=== PATIENT | female | born 1980 | race Caucasian/White ===

== ENCOUNTER 2016-09-04 19:32 | Emergency (ER) | payer MEDICAID ==
[~2016-09-04] VITALS: Ht 162.6 cm; Wt 88.5 kg
[~2016-09-04 19:32] MED LIST: CEPH-443 PO; HYDR-3498 PO
[2016-09-04 19:59] VITALS: Ht 162.6 cm; Wt 88.5 kg
[2016-09-04] MEDS ORDERED: CEFTRIAXONE 1 GM/50 ML (PMX) 50 ML IVPB STA (20:58)
[2016-09-04] MEDS ORDERED: SODIUM CHLORIDE 0.9% 1L BAG IV* STA (20:58)
[2016-09-04] MEDS ORDERED: ACETAMINOPHEN 500 MG TAB PO STA (21:10)
[2016-09-04] MEDS ORDERED: ONDANSETRON 4 MG INJ IV STA (21:11)
[2016-09-04] MEDS ORDERED: morphine 4 MG/ML VIAL IV STA (21:11)
[2016-09-04 21:32] LABS: BASOPHILS % 0.3 % (0.0-2.0); CONDITION 1; EOSINOPHILS # 0.1 10^3/ul (0.0-0.5); EOSINOPHILS % 0.7 % (0.0-7.0); HEMATOCRIT 40.3 % (37.0-47.0); HEMOGLOBIN 13.9 g/dl (12.0-16.0); LYMPHOCYTES # 1.1 10^3/ul (0.8-2.9); LYMPHOCYTES % 13.1 % (15.0-51.0); MEAN CORPUSCULAR HEMOGLOBIN 29.9 pg (29.0-33.0); MEAN CORPUSCULAR HGB CONC 34.5 g/dl (32.0-37.0); MEAN CORPUSCULAR VOLUME 86.7 fl (82.0-101.0); MEAN PLATELET VOLUME 8.6 fl (7.4-10.4); MONOCYTE # 0.7 10^3/ul (0.3-0.9); MONOCYTES % 8.2 % (0.0-11.0); NEUTROPHIL # 6.5 10^3/ul (1.6-7.5); NEUTROPHILS % 77.7 % (39.0-77.0); PLATELET COUNT 240 10^3/UL (140-440); RED BLOOD COUNT 4.65 10^6/ul (4.20-5.40); RED CELL DISTRIBUTION WIDTH 13.1 % (11.5-14.5); UNCORRECTED WBC 8.4 10^3/ul (4.8-10.8); WHITE BLOOD COUNT 8.4 10^3/ul (4.8-10.8)
[2016-09-04 21:38] LABS: ADD UMIC YES; URINE BILIRUBIN (Dip) NEGATIVE (NEGATIVE); URINE BLOOD (Dip) TRACE (NEGATIVE); URINE COLOR LT. YELLOW (YELLOW); URINE GLUCOSE (Dip) NEGATIVE (NEGATIVE); URINE KETONES (Dip) NEGATIVE (NEGATIVE); URINE LEUKOCYTE ESTERASE (Dip) 2+ (NEGATIVE); URINE NITRITE (Dip) NEGATIVE (NEGATIVE); URINE TOTAL PROTEIN (Dip) NEGATIVE (NEGATIVE); URINE UROBILINOGEN (Dip) 1.0 E.U./dL (0.1-1.0)
[2016-09-04 21:40] LABS: ALBUMIN 4.2 g/dl (3.3-4.9); CHLORIDE 102 mmol/L (97-110); INR 1.11; PARTIAL THROMBOPLASTIN TIME 32.8 Sec (25.0-35.0); PROTIME 14.3 Sec (12.2-14.2); PT RATIO 1.1; SODIUM 140 mmol/L (135-144)
[2016-09-04 21:41] LABS: POTASSIUM 3.3 mmol/L (3.5-5.1)
[2016-09-04 21:42] LABS: CREATININE 0.67 mg/dl (0.44-1.00)
[2016-09-04 21:43] LABS: ALANINE AMINOTRANSFERASE 73 IU/L (13-69); ALBUMIN/GLOBULIN RATIO 1.23; ALKALINE PHOSPHATASE 115 IU/L (42-121); ANION GAP 18 (8-16); ASPARTATE AMINO TRANSFERASE 54 IU/L (15-46); BILIRUBIN,INDIRECT 0.7 mg/dl (0-1.1); BILIRUBIN,TOTAL 0.7 mg/dl (0.2-1.3); BLOOD UREA NITROGEN 9 mg/dl (7-20); CARBON DIOXIDE 23 mmol/L (21-31); GLUCOSE 165 mg/dl (70-220); TOTAL PROTEIN 7.6 g/dl (6.1-8.1)
[2016-09-04 21:44] LABS: CALCIUM 8.7 mg/dl (8.4-10.2)
[2016-09-04 21:47] LABS: BACTERIA,URINE FEW; SQUAMOUS EPITHELIAL CELL,UR MODERATE; URINE RBCS 0-2 /HPF (0)
[2016-09-04 21:59] LABS: TROPONIN-I < 0.012 ng/ml (0.00-0.12)
--- NOTE | 2016-09-04 23:53 | RADRPT ---
PROCEDURE: CHEST - 1 VIEW CLINICAL INDICATION: 36-year-old female with shortness of breath and sepsis. TECHNIQUE: A single frontal AP semi-erect view of the chest was performed portably. The images we re reviewed on a PACS workstation. COMPARISON: Chest x-ray April 25, 2012; CT abdomen/pelvis November 20, 2015. FINDINGS: The cardiomediastinal silhouette has a normal appearance. There is no evidence for an infiltrate. There is no evidence for congestive heart failure. There is no evidence for pneumothorax. The osseou s structures are intact. IMPRESSION: No evidence for active cardiopulmonary disease. .Jalen Garcia MD, MD Date Time Electronically viewed and signed by .Jalen Garcia MD, on 09/04/2016 23:53 .[place]
[2016-09-05] MEDS ORDERED: ONDANSETRON 4 MG INJ IV STA (00:39)
[2016-09-05] MEDS ORDERED: morphine 4 MG/ML VIAL IV STA (00:39)
[2016-09-05 01:20] VITALS: BP 119/79; PULSE 102; RESP 20; TEMP 100
--- NOTE | 2016-09-05 01:39 | RADRPT ---
PROCEDURE: CT ABDOMEN/PELVIS WITHOUT CONTRAST CLINICAL INDICATION: 36-year-old female with abdominal pain. TECHNIQUE: The study was performed utilizing a GE Neosenspeed VCT 64-slice CT scanner. Direct axia l sections were obtained through the abdomen and pelvis without the use of intravenous contrast mate rial. Sagittal and coronal reformations were obtained. Automated exposure control and iterative justice nstruction techniques were utilized for this examination. The images [facility] CTD/vol = 20.3 mGy; Total Exam DLP = 1165.1 mGy-cm. COMPARISON: Abdomen/pelvis November 20, 2015. FINDINGS: There are small bilateral pleural effusions. There is mild bibasilar subsegmental atelectasis. The liver has a normal contour and is enlarged measuring 28.0 cm in maximal length with marked diffuse decreased density consistent with fatty infiltration without focal areas of abnormal density. No int rahepatic nor extrahepatic biliary ductal dilatation is seen. Surgical clips are present within the gallbladder fossa from prior cholecystectomy. The pancreas is without areas of abnormal attenuation . The spleen is identified and has a normal size without abnormal density. The adrenal glands are u nremarkable. The kidneys are without abnormal density. No hydroureteronephrosis nor nephroureterolit hiasis is evident. The urinary bladder contains urine. There is no evidence for bowel obstruction. The appendix is visualized and is without abnormal thickening or surrounding inflammatory reaction. The uterus is unremarkable. Phleboliths are seen within the pelvis. There is no significant free fluid. The aortoiliac vessels are without aneurysmal dilatation. The osseous structures are intact. IMPRESSION: 1. Small bilateral pleural effusions and mild bibasilar subsegmental atelectasis. 2. Hepatomegaly with diffuse fatty infiltration. 3. Status post cholecystectomy. 4. No CT evidence for obstructive uropathy or renal calculi. 5. No CT evidence for appendicitis. .Jalen Garcia MD, Date Time Electronically viewed and signed by .Jalen Garcia MD, MD on 09/05/2016 01:38 .[place]
[2016-09-05] MEDS ORDERED: ONDA4TAB8 PO (02:40)
[2016-09-05] MEDS ORDERED: CIPR500T4 PO (02:41)
[2016-09-05] MEDS ORDERED: UDLOM GTB (02:41)
[2016-09-05] MEDS ORDERED: METR500T PO (02:41)
--- NOTE | 2016-09-05 02:51 | ERD ---
ER Documentation Chief Complaint Date/Time DATE: 09/05/16 TIME: 02:49 Chief Complaint diarrhea x 3 weeks, fever/vomit x 1 day HPI Patient is a 36 year old female with multiple complaints who presents to the ED with 3 weeks of diarrhea, 1 week of fever on and off as well as one day of non blood non bilious emesis that started today. She states that she has had constant non bloody non black diarrhea. Denies recent travel or change in food. States that she developed tactile fevers at home on and offs. She also complains of periumbilical abdominal pain. She states that she had umbilica hernia surgery 5 months ago and is concerned because the pain is located in her periumbilical area, similar to what she had prior to the surgery. She denies chest pain, shortness of breath or difficulty breathing. She denies dizziness or weakness. Denies recent surgeries, leg pain, swelling or recent travel. Also complains of dysuria and urgency with no back pain. She has taken tylenol for her symptoms. No other complaints. ROS All systems reviewed and are negative except as per history of present illness. Medications Home Meds Active Scripts Metronidazole* (Flagyl*) 500 Mg Tablet, 500 MG PO TID for 5 Days, TAB Prov:AYAZ CRAVEN PA-C 09/05/16 Ciprofloxacin Hcl* (Ciprofloxacin Hcl*) 500 Mg Tablet, 500 MG PO BID for 5 Days , TAB Prov:AYAZ CRAVEN PA-C 09/05/16 Diphenoxylate Hcl-Atropine* (Lomotil*) 5 Ml Soln, 5 ML GTB Q6H Y for DIARRHEA for 7 Days, ML Prov:AYAZ CRAVEN PA-C 09/05/16 Ondansetron Hcl* (Zofran*) 4 Mg Tablet, 4 MG PO Q6H for NAUSEA AND/OR VOMITING, #30 TAB Prov:AYAZ CRAVEN PA-C 09/05/16 Hydrocodone Bit-Acetaminophen* ([place]*) 5-325 Mg Tab, 1 TAB PO Q6 Y for PAIN, # 7 TAB Prov:LEXIE BURNS PA-C 11/20/15 Cephalexin* (Keflex*) 500 Mg Capsule, 500 MG PO QID for 7 Days, CAP Prov:LEXIE BURNS PA-C 11/20/15 Allergies Allergies: Coded Allergies: No Known Allergy (Unverified , 04/25/12) PMhx/Soc Medical and Surgical Hx: pt denies Medical Hx History of Surgery: Yes (umbilical hernia ) Anesthesia Reaction: No Hx Neurological Disorder: No Hx Respiratory Disorders: No Hx Cardiac Disorders: No Hx Psychiatric Problems: No Hx Miscellaneous Medical Probl: Yes (UTI) Hx Alcohol Use: No Hx Substance Use: No Hx Tobacco Use: No Physical Exam Vitals Vital Signs Date Time Temp Pulse Resp B/P Pulse Ox O2 Delivery O2 Flow Rate FiO2 09/05/16 01:20 100.0 102 20 119/79 98 Room Air 09/05/16 00:25 100.2 106 22 128/88 98 Room Air 09/04/16 22:51 102.0 108 22 131/77 98 Room Air 09/04/16 21:25 Nasal Cannula 2 09/04/16 21:20 103.1 117 21 143/84 100 Room Air 09/04/16 19:59 101.3 132 28 141/98 100 Physical Exam GENERAL: Well-developed, well-nourished female. Appears in distress HEAD: Normocephalic, atraumatic. EYES: Pupils are equally reactive bilaterally. EOMs grossly intact. No conjunctival erythema. ENT: Moist mucous membranes. No uvula deviation. No kissing tonsils. No exudates. NECK: Supple. No lymphadenopathy or thyromegaly. No meningismus. negative kernig. negative brudinski. LUNG: Clear to auscultation bilaterally. No rhonchi, wheezing, rales or coarse breath sounds. HEART: Regular rate and rhythm. No murmurs, rubs or gallops. ABDOMEN: No scars, ecchymosis or rashes noted. Soft, and nondistended. Positive bowel sounds in all four quadrants. No rebound tenderness, no guarding. (-) McBurneys point tenderness. No CVA tenderness. tenderness in periumbilical region. BACK: No midline tenderness. Extremities: Equal pulses bilaterally. No peripheral clubbing, cyanosis or edema. No unilateral leg swelling. NEUROLOGIC: Alert and oriented. Moving all four extremities. 5/5 strength in all extremities. Normal speech. Steady gait. CN 2-12 intact. SKIN: Normal color. Warm and dry. No rashes or lesions. Capillary refill < 2 seconds Result Diagram: 09/04/16210109/04/162101 Results 24 hrs Laboratory Tests Test 09/04/16 21:02 09/04/16 23:12 09/05/16 01:00 Activated Partial Thromboplast Time 32.8Sec Alanine Aminotransferase (ALT/SGPT) 73IU/L Albumin 4.2g/dl Albumin/Globulin Ratio 1.23 Alkaline Phosphatase 115IU/L Anion Gap 18 Aspartate Amino Transf (AST/SGOT) 54IU/L Basophils # 0.010^3/ul Basophils % 0.3% Blood Urea Nitrogen 9mg/dl Calcium Level 8.7mg/dl Carbon Dioxide Level 23mmol/L Chloride Level 102mmol/L Creatinine 0.67mg/dl Direct Bilirubin 0.00mg/dl Eosinophils # 0.110^3/ul Eosinophils % 0.7% Globulin 3.40g/dl Glucose Level 165mg/dl Hematocrit 40.3% Hemoglobin 13.9g/dl INR International Normalized Ratio 1.11 Indirect Bilirubin 0.7mg/dl Lactic Acid Level 2.7mmol/L 0.9mmol/L 1.0mmol/L Lymphocytes # 1.110^3/ul Lymphocytes % 13.1% Mean Corpuscular Hemoglobin 29.9pg Mean Corpuscular Hemoglobin Concent 34.5g/dl Mean Corpuscular Volume 86.7fl Mean Platelet Volume 8.6fl Monocytes # 0.710^3/ul Monocytes % 8.2% Neutrophils # 6.510^3/ul Neutrophils % 77.7% Nucleated Red Blood Cells # 0.010^3/ul Nucleated Red Blood Cells % 0.0/100WBC Platelet Count 48236^3/UL Potassium Level 3.3mmol/L Prothrombin Time 14.3Sec Prothrombin Time Ratio 1.1 Red Blood Count 4.6510^6/ul Red Cell Distribution Width 13.1% Sodium Level 140mmol/L Total Bilirubin 0.7mg/dl Total Protein 7.6g/dl Troponin I < 0.012ng/ml Urine Bacteria FEW Urine Bilirubin NEGATIVE Urine Clarity CLEAR Urine Color LT. YELLOW Urine Glucose NEGATIVE% Urine Hemoglobin TRACE Urine Ketones NEGATIVE Urine Leukocyte Esterase 2+ Urine Microscopic RBC 0-2/HPF Urine Microscopic WBC 10-25/HPF Urine Nitrite NEGATIVE Urine Test NEGATIVE Urine Specific [place] 1.015 Urine Squamous Epithelial Cells MODERATE Urine Total Protein NEGATIVE Urine Urobilinogen 1.0 E.U./dL Urine pH 5.5 White Blood Count 8.410^3/ul Current Medications Medications (Trade) Dose Ordered Sig/Reuben Route PRN Reason Start Time Stop Time Status Last Admin Dose Admin Sodium Chloride 2740 ml 2,740 ml BOLUS OVER 2 HOURS STAT IV* 09/04/16 20:58 09/05/16 02:56 DC 09/04/16 21:23 Ceftriaxone Sodium (Rocephin) 50 ml @ 100 mls/hr ONCE STAT IVPB 09/04/16 20:58 09/05/16 02:56 DC 09/04/16 21:23 Acetaminophen (Tylenol Tab) 1,000 mg ONCE STAT PO 09/04/16 21:10 09/05/16 02:56 DC 09/04/16 21:22 Ondansetron HCl (Zofran Inj) 4 mg ONCE STAT IV 09/04/16 21:11 09/05/16 02:56 DC 09/04/16 21:22 Morphine Sulfate (morphine) 4 mg ONCE STAT IV 09/04/16 21:11 09/05/16 02:56 DC 09/04/16 21:23 Morphine Sulfate (morphine) 4 mg ONCE STAT IV 09/05/16 00:39 09/05/16 02:56 DC 09/05/16 01:06 Ondansetron HCl (Zofran Inj) 4 mg ONCE STAT IV 09/05/16 00:39 09/05/16 02:56 DC 09/05/16 01:06 Procedures/MDM ER COURSE: I kept the patient and/or family informed of laboratory and diagnostic imaging results throughout the emergency room course. EKG, MONITORS, & DIAGNOSTIC IMAGING: [place] [address] Radiology Main Line: [phone] DIAGNOSTIC IMAGING REPORT Patient: TARAH WARREN : 1980 Age: 36 Sex: F MR #: [id number] DOS: 09/04/162057 Ordering MD: PJ CRAMER MD Location: [facility] Room/Bed: PROCEDURE: CT ABDOMEN/PELVIS WITHOUT CONTRAST CLINICAL INDICATION: 36-year-old female with abdominal pain. TECHNIQUE: The study was performed utilizing a GE Dynispe[employer] Shuttle Express VCT 64-slice CT scanner. Direct axial sections were obtained through the abdomen and pelvis without the use of intravenous contrast material. Sagittal and coronal reformations were obtained. Automated exposure control and iterative reconstruction techniques were utilized for this examination. The images were reviewed on a PACS workstation. CTD/vol = 20.3 mGy; Total Exam DLP = 1165.1 mGy-cm. COMPARISON: Abdomen/pelvis November 20, 2015. FINDINGS: There are small bilateral pleural effusions. There is mild bibasilar subsegmental atelectasis. The liver has a normal contour and is enlarged measuring 28.0 cm in maximal length with marked diffuse decreased density consistent with fatty infiltration without focal areas of abnormal density. No intrahepatic nor extrahepatic biliary ductal dilatation is seen. Surgical clips are present within the gallbladder fossa from prior cholecystectomy. The pancreas is without areas of abnormal attenuation. The spleen is identified and has a normal size without abnormal density. The adrenal glands are unremarkable. The kidneys are without abnormal density. No hydroureteronephrosis nor nephroureterolithiasis is evident. The urinary bladder contains urine. There is no evidence for bowel obstruction. The appendix is visualized and is without abnormal thickening or surrounding inflammatory reaction. The uterus is unremarkable. Phleboliths are seen within the pelvis. There is no significant free fluid. The aortoiliac vessels are without aneurysmal dilatation. The osseous structures are intact. IMPRESSION: 1. Small bilateral pleural effusions and mild bibasilar subsegmental atelectasis. 2. Hepatomegaly with diffuse fatty infiltration. 3. Status post cholecystectomy. 4. No CT evidence for obstructive uropathy or renal calculi. 5. No CT evidence for appendicitis. .Jalen Garcia MD, Date Time Electronically viewed and signed by .Jalen Garcia MD, on 09/05/2016 01:38 .M/ CC: PJ CRAMER MD EKG performed, read by [] [default value]bpm, normal sinus rhythm, normal axis, no acute ST segment changes, no T wave inversion [facility] [address], [place], [place] [address] Radiology Main Line: [phone] DIAGNOSTIC IMAGING REPORT Patient: TARAH WARREN : 1980 Age: 36 Sex: F MR #: [id number] DOS: 09/04/162057 Ordering MD: PJ CRAMER MD Location: [facility]TE Room/Bed: PROCEDURE: CHEST - 1 VIEW CLINICAL INDICATION: 36-year-old female with shortness of breath and sepsis. TECHNIQUE: A single frontal AP semi-erect view of the chest was performed portably. The images were reviewed on a PACS workstation. COMPARISON: Chest x-ray April 25, 2012; CT abdomen/pelvis November 20, 2015. FINDINGS: The cardiomediastinal silhouette has a normal appearance. There is no evidence for an infiltrate. There is no evidence for congestive heart failure. There is no evidence for pneumothorax. The osseous structures are intact. IMPRESSION: No evidence for active cardiopulmonary disease. .Jalen Garcia MD, MD Date Time Electronically viewed and signed by .Jalen Garcia MD, MD on 09/04/2016 23:53 .M/ CC: PJ CRAMER MD MEDICATIONS: Morphine, zofran, tylenol. Tolerated medication well with no adverse reaction LAB INTERPRETATION: CBC showed no evidence of systemic infection or severe anemia. CMP showed no evidence of electrolyte abnormalities, severe acidosis, alkalosis, renal failure , or liver disease. Lipase showed no evidence of acute pancreatitis. Her lactic acid was intitially elevated to 2.7, but after 2 readings were within normal limits. UA showed no evidence of nitrites or hematuria, 2+ leukocytes. Urine test was negative. MEDICAL DECISION MAKING: This is a 36 year old female who presents with diarrhea, abdominal pain, vomiting and fever. Vital signs were reviewed. Temperature in the ED initially 101.3 Patient had pulse of 132 with respiratory rate of 28. Patient is not hypoxic. Septic workup was done on patient. Patient was given morphine, zofran and tylenol for her symptoms. Patient required second round of zofran and morphine, but pain was controlled in the ED. CT scan as read by radiologist showed Small bilateral pleural effusions and mild bibasilar subsegmental atelectasis, Hepatomegaly with diffuse fatty infiltration, Status post cholecystectomy, No CT evidence for obstructive uropathy or renal calculi, No CT evidence for appendicitis.I spoke with Dr. Stafford regarding this patient who reviewed labs and agrees with plan. Patient has UTI and abdominal pain of unknown etiology. Her diarrhea is likely viral related. Patient needs close follow up. Temperature in the ED downtrended prior to discharge and pain was controlled in the ED. Differential diagnosis includes but is not limited to ovarian torsion, PID, tuboovarian abscess, ectopic , bowel obstruction , pyelonephritis, UTI, appendicitis, cervicitis, septic , molar , HELLP syndrome, preeclampsia, eclampsia, placenta previa, placenta abruptia, strangulated hernia, incarcerated hernia, abscess, ACS, AAA, perforated ulcer, bowel obstruction, cholecystitis, choledocholithiasis, cholangitis, pancreatitis, hepatic abscess, appendicitis, diverticulitis, gastroenteritis, hepatitis, peptic ulcer disease, HELLP syndrome. DISCHARGE: At this time, patient is stable for discharge and outpatient management with no new complaints during the ER course. Patient was sent home with zofran for nausea, flagyl and cipro and lomotil for diarrhea and infection. Patient will be discharged home with instructions to recheck for new or worsening symptoms such as fever, nausea, weakness, LOC and to follow up with primary care in the next 1-2 days. Patient was advised to return to the ER for any new or worsening symptoms. Plan was discussed and patient and/or family understands and agrees. Home instructions were given. Departure Diagnosis: Primary Impression: Nausea, vomiting, and diarrhea Additional Impression: UTI (urinary tract infection) Urinary tract infection type: site unspecified Hematuria presence: without hematuria Qualified Code: N39.0 - Urinary tract infection without hematuria, site unspecified Condition: Stable Patient Instructions: Understanding Urinary Tract Infections (UTIs) Additional Instructions: Llame al doctor MAANA y dajuan manju JOB PARA DENTRO DE 1-2 GREEN.Dgale a la secretaria que nosotros le instruimos hacer esta job.Avise o llame si patricio condicin se empeora antes de la job. Regresa aqui si peor o no mejor. AYAZ CRAVEN PA-C Sep 05, 2016 02:51
== END 2016-09-05 02:56 | disposition home or self-care (01) ==
LOC: FTE 19:32
DX: R11.2 Nausea with vomiting, unspecified (principal); N39.0 Urinary tract infection, site not specified; R06.02 Shortness of breath
CPT/HCPCS: 36415; 71010; 74176; 80053; 81001; 83605; 84484; 84703; 85025; 85610; 85730; 87040; 87086; 93005; 96374; 96375; 96376; J0696; J2270; J2405; J7030; Z7502; Z7610; 81003

== ENCOUNTER 2017-06-08 08:40 | Emergency (ER) | payer MEDICAID ==
[~2017-06-08] VITALS: Ht 167.6 cm; Wt 89.0 kg
[~2017-06-08 08:40] MED LIST changes: +CIPR500T4 PO; +METR500T PO; +ONDA4TAB8 PO; +UDLOM GTB
[2017-06-08 08:43] VITALS: Ht 167.6 cm; Wt 89.0 kg
[2017-06-08] MEDS ORDERED: ONDANSETRON 4 MG INJ IV STA (09:49)
[2017-06-08] MEDS ORDERED: morphine 4 MG/ML VIAL IV STA (09:49)
--- NOTE | 2017-06-08 10:06 | ERD ---
ER Documentation Chief Complaint Chief Complaint RT UPPER ABD PAIN STARTED LAST NIGHT HPI This is a 37-year-old female who presents to the emergency department today complaining of upper abdominal pain that started 1 week ago and got worse last night. Patient states she had her gallbladder removed 10 years ago. States she is not taking any medication for the pain. States she has some nausea but no vomiting. She has some pain when she takes a deep breath. Denies any dysuria, cough, fevers or chills. ROS All systems reviewed and are negative except as per history of present illness. Medications Home Meds Active Scripts Ondansetron Hcl* (Zofran*) 4 Mg Tablet, 4 MG PO Q6H for NAUSEA AND/OR VOMITING, #30 TAB Prov:LEXIE BURNS PA-C 06/08/17 Naproxen* (Naprosyn*) 500 Mg Tablet, 500 MG PO BID Y for PAIN AND/OR INFLAMMATION, #30 TAB Prov:LEXIE BURNS PA-C 06/08/17 Tramadol HCl (Tramadol HCl) 50 Mg Tablet, 50 MG PO Q4 Y for PAIN, #20 TAB Prov:LEXIE BURNS PA-C 06/08/17 Metronidazole* (Flagyl*) 500 Mg Tablet, 500 MG PO TID for 5 Days, TAB Prov:AYAZ CRAVEN PA-C 09/05/16 Ciprofloxacin Hcl* (Ciprofloxacin Hcl*) 500 Mg Tablet, 500 MG PO BID for 5 Days , TAB Prov:AYAZ CRAVEN PA-C 09/05/16 Diphenoxylate Hcl-Atropine* (Lomotil*) 5 Ml Soln, 5 ML GTB Q6H Y for DIARRHEA for 7 Days, ML Prov:AYAZ CRAVEN PA-C 09/05/16 Ondansetron Hcl* (Zofran*) 4 Mg Tablet, 4 MG PO Q6H for NAUSEA AND/OR VOMITING, #30 TAB Prov:AYAZ CRAVEN PA-C 09/05/16 Hydrocodone Bit-Acetaminophen* ([place]*) 5-325 Mg Tab, 1 TAB PO Q6 Y for PAIN, # 7 TAB Prov:LEXIE BURNS PA-C 11/20/15 Cephalexin* (Keflex*) 500 Mg Capsule, 500 MG PO QID for 7 Days, CAP Prov:KATYLEXIE Wing PA-C 11/20/15 Allergies Allergies: Coded Allergies: No Known Allergy (Unverified , 04/25/12) PMhx/Soc History of Surgery: Yes (umbilical hernia ) Anesthesia Reaction: No Hx Neurological Disorder: No Hx Respiratory Disorders: No Hx Cardiac Disorders: No Hx Psychiatric Problems: No Hx Miscellaneous Medical Probl: Yes (UTI) Hx Alcohol Use: No Hx Substance Use: No Hx Tobacco Use: No Physical Exam Vitals Vital Signs Date Time Temp Pulse Resp B/P Pulse Ox O2 Delivery O2 Flow Rate FiO2 06/08/17 08:43 98.6 95 18 155/96 97 Physical Exam Const: NAD Head: Atraumatic Eyes: Normal Conjunctiva ENT: Normal External Ears, Nose and Mouth. Neck: Full range of motion..~ No meningismus. Resp: Clear to auscultation bilaterally Cardio: Regular rate and rhythm, no murmurs Abd: Soft, right upper quadrant tenderness non distended. Normal bowel sounds no lower abdominal pain. No tenderness at McBurney's Skin: No petechiae or rashes Back: No midline or flank tenderness Ext: No cyanosis, or edema Neur: Awake and alert Psych: Normal Mood and Affect Result Diagram: 06/08/1782406/08/17 0825 Results 24 hrs Laboratory Tests Test 06/08/17 08:25 06/08/17 10:01 White Blood Count 8.910^3/ul Red Blood Count 4.8610^6/ul Hemoglobin 14.4g/dl Hematocrit 42.0% Mean Corpuscular Volume 86.4fl Mean Corpuscular Hemoglobin 29.6pg Mean Corpuscular Hemoglobin Concent 34.3g/dl Red Cell Distribution Width 12.3% Platelet Count 49705^3/UL Mean Platelet Volume 10.1fl Neutrophils % 64.4% Lymphocytes % 28.7% Monocytes % 5.5% Eosinophils % 0.6% Basophils % 0.3% Nucleated Red Blood Cells % 0.0/100WBC Neutrophils # 5.710^3/ul Lymphocytes # 2.610^3/ul Monocytes # 0.510^3/ul Eosinophils # 0.110^3/ul Basophils # 0.010^3/ul Nucleated Red Blood Cells # 0.010^3/ul Sodium Level 144mmol/L Potassium Level 3.8mmol/L Chloride Level 104mmol/L Carbon Dioxide Level 28mmol/L Anion Gap 16 Blood Urea Nitrogen 9mg/dl Creatinine 0.59mg/dl Glucose Level 147mg/dl Calcium Level 9.3mg/dl Total Bilirubin 1.0mg/dl Direct Bilirubin 0.00mg/dl Indirect Bilirubin 1.0mg/dl Aspartate Amino Transf (AST/SGOT) 47IU/L Alanine Aminotransferase (ALT/SGPT) 75IU/L Alkaline Phosphatase 117IU/L Total Protein 8.1g/dl Albumin 4.7g/dl Globulin 3.40g/dl Albumin/Globulin Ratio 1.38 Lipase 39U/L Urine Color STRAW Urine Clarity CLEAR Urine pH 7.0 Urine Specific [place] 1.006 Urine Ketones NEGATIVEmg/dL Urine Nitrite NEGATIVEmg/dL Urine Bilirubin NEGATIVEmg/dL Urine Urobilinogen NEGATIVEmg/dL Urine Leukocyte Esterase NEGATIVELeu/ul Urine Hemoglobin NEGATIVEmg/dL Urine Glucose NEGATIVEmg/dL Urine Total Protein NEGATIVEmg/dl Current Medications Medications (Trade) Dose Ordered Sig/Reuben Route PRN Reason Start Time Stop Time Status Last Admin Dose Admin Morphine Sulfate (morphine) 4 mg ONCE STAT IV 06/08/17 09:49 06/08/17 09:54 DC 06/08/17 10:36 Ondansetron HCl (Zofran Inj) 4 mg ONCE STAT IV 06/08/17 09:49 06/08/17 09:54 DC 06/08/17 10:36 DIAGNOSTIC IMAGING REPORT Patient: TARAH WARREN : 1980 Age: 37 Sex: F [id number]: 06/08/17 0000 Ordering MD: LEXIE BURNS PA-C Location: FTE Room/Bed: PROCEDURE: XR Chest. CLINICAL INDICATION: Chest pain TECHNIQUE: Single portable view of the chest was obtained COMPARISON: CR CHEST 09/04/2016 FINDINGS: The heart and mediastinum are within normal limits. There are mild bibasilar atelectatic changes. The lungs are otherwise clear. There is no pleural effusion or pneumothorax. RPTAT: AA IMPRESSION: Mild bibasilar atelectatic changes, left greater than right. .Ar Lopez MD, MD Date Time Electronically viewed and signed by .Ar Lopez MD, MD on 06/08/2017 10: 15 .S/ CC: LEXIE BURNS PA-C Procedures/MDM This a 37-year-old female who presents the emergency department today complaining of upper abdominal pain for the past week that got worse last night. Patient was reporting some pain on inspiration therefore did obtain laboratory workup as well as imaging. Laboratory workup elevated white blood cell count. She is not anemic. Platelets are within normal limits. Electrolytes are within normal limits. Glucose is within normal limits. Liver enzymes are mildly elevated. Lipase is within normal limits. Bilirubin is within normal limits. UA negative for infection. Urine test is negative Abdomen ultrasound limited shows diffuse fatty infiltration of the liver. Common bile duct measures 7 mm in maximal dimension. Patient status post cholecystectomy. There is no intrahepatic biliary dilatation seen. Chest X-ray mild bibasilar atelectatic changes. Lungs are otherwise clear. There is no pleural effusion or pneumothorax. Patient was given morphine and Zofran here in the emergency department and pain improved Patient has right uuper quadrant abdominal pain of uncertain etiology. There is no evidence of retained stone. Patient has normal laboratory workup. She has no lower abdominal pain and have low suspicion for acute surgical abdomen, ectopic , tubo-ovarian abscess, ovarian torsion. Has no rash and there is no evidence of shingles. Patient is not short of breath, she is not tachycardic. I have low suspicion for PE, abscess, pleural effusion, pneumothorax Given a prescription for short course of Tramadol Naprosyn and Zofran for home. At this time the patient is stable for discharge and outpatient management. Patient should follow up with their PCP in the next 1-2 days. They may return to the emergency department sooner for any persistent or worsening of symptoms. Patient understood and agreed with the plan. Departure Diagnosis: Primary Impression: Abdominal pain Abdominal location: right upper quadrant Qualified Code: R10.11 - Right upper quadrant abdominal pain Condition: Fair LEXIE BURNS PA-C Jun 08, 2017 10:06
--- NOTE | 2017-06-08 10:15 | RADRPT ---
PROCEDURE: XR Chest. CLINICAL INDICATION: Chest pain TECHNIQUE: Single portable view of the chest was obtained COMPARISON: CR CHEST 09/04/2016 FINDINGS: The heart and mediastinum are within normal limits. There are mild bibasilar atelectatic changes. The lungs are otherwise clear. There is no pleural effusion or pneumothorax. RPTAT: AA IMPRESSION: Mild bibasilar atelectatic changes, left greater than right. .Ar Lopez MD, MD Date Time Electronically viewed and signed by .Ar Lopez MD, MD on 06/08/2017 10:15 .S/
[2017-06-08 10:23] LABS: ADD UMIC NO; UR ASCORBIC ACID NEGATIVE (NEGATIVE); UR BILIRUBIN (Dip) NEGATIVE (NEGATIVE); UR BLOOD (Dip) NEGATIVE (NEGATIVE); UR CLARITY CLEAR (CLEAR); UR COLOR STRAW (YELLOW); UR GLUCOSE (Dip) NEGATIVE (NEGATIVE); UR KETONES (Dip) NEGATIVE (NEGATIVE); UR LEUKOCYTE ESTERASE (Dip) NEGATIVE Leu/ul (NEGATIVE); UR NITRITE (Dip) NEGATIVE (NEGATIVE); UR SPECIFIC GRAVITY (Dip) 1.006 (1.003-1.030); UR TOTAL PROTEIN (Dip) NEGATIVE (NEGATIVE); UR UROBILINOGEN (Dip) NEGATIVE (NEGATIVE)
[2017-06-08 10:40] LABS: BASOPHILS % 0.3 % (0.0-2.0); EOSINOPHILS # 0.1 10^3/ul (0.0-0.5); EOSINOPHILS % 0.6 % (0.0-7.0); HEMOGLOBIN 14.4 g/dl (12.0-16.0); LYMPHOCYTES # 2.6 10^3/ul (0.8-2.9); LYMPHOCYTES % 28.7 % (15.0-51.0); MEAN CORPUSCULAR HEMOGLOBIN 29.6 pg (29.0-33.0); MEAN CORPUSCULAR HGB CONC 34.3 g/dl (32.0-37.0); MEAN CORPUSCULAR VOLUME 86.4 fl (82.0-101.0); MEAN PLATELET VOLUME 10.1 fl (7.4-10.4); MONOCYTE # 0.5 10^3/ul (0.3-0.9); MONOCYTES % 5.5 % (0.0-11.0); NEUTROPHIL # 5.7 10^3/ul (1.6-7.5); NEUTROPHILS % 64.4 % (39.0-77.0); PLATELET COUNT 286 10^3/UL (140-415); RED BLOOD COUNT 4.86 10^6/ul (4.20-5.40); RED CELL DISTRIBUTION WIDTH 12.3 % (11.5-14.5); WHITE BLOOD COUNT 8.9 10^3/ul (4.8-10.8)
--- NOTE | 2017-06-08 11:02 | RADRPT ---
PROCEDURE: US Abdomen. CLINICAL INDICATION: abdominal pain TECHNIQUE: Multiple real-time images were acquired of the patient's right upper quadrant abdomen a nd retroperitoneum utilizing a high resolution transducer. COMPARISON: None FINDINGS: The liver demonstrates increased echogenicity. The liver is normal in size and no focal solid lesio ns are seen. The liver measures 16.2 cm in length. The portal vein is patent with normal direction o f flow. No intrahepatic biliary dilatation is seen. The patient is status post cholecystectomy. The common bile duct measures 7 mm in maximal dimension. The visualized portions of the pancreas are unremarkable. The tail of the pancreas is not seen. No free fluid is identified. The right kidney is normal in size, and demonstrate normal echogenicity and cortical thickness. The right kidney measures 12 cm in long dimension. There is no evidence of hydronephrosis. There are n o kidney stones. RPTAT: AA IMPRESSION: Diffuse fatty infiltration of the liver. Status post cholecystectomy. .Ar Lopez MD, MD Date Time Electronically viewed and signed by .Ar Lopez MD, on 06/08/2017 11:01 .S/
[2017-06-08 11:09] LABS: ALBUMIN 4.7 g/dl (3.3-4.9); ALBUMIN/GLOBULIN RATIO 1.38; CALCIUM 9.3 mg/dl (8.4-10.2); CREATININE 0.59 mg/dl (0.44-1.00); POTASSIUM 3.8 mmol/L (3.5-5.1); TOTAL PROTEIN 8.1 g/dl (6.1-8.1)
[2017-06-08] MEDS ORDERED: NAPR-260 PO (12:15)
[2017-06-08] MEDS ORDERED: ONDA4TAB8 PO (12:15)
[2017-06-08] MEDS ORDERED: TRAM50TA2 PO (12:15)
[2017-06-08 12:38] VITALS: BP 130/78; PULSE 78; RESP 18; TEMP 98.1
== END 2017-06-08 12:39 | disposition home or self-care (01) ==
LOC: FTE 08:40
DX: R10.11 Right upper quadrant pain (principal); R11.2 Nausea with vomiting, unspecified
CPT/HCPCS: 36415; 71010; 76705; 80053; 81003; 83690; 85025; 96374; 96375; J2270; J2405; Z7502